=== PATIENT | female | born 1955 | race Caucasian/White ===

== ENCOUNTER 2016-10-22 16:36 | Emergency (ER) | payer BC ==
[2016-10-22 17:03] VITALS: BP 136/86
--- NOTE | 2016-10-22 17:42 | UC ---
Respiratory Complaint HPI - HPI Summary HPI Summary: Pt presents with nasal congestion, cough, wheezing, and generalized malaise X 2 weeks. - History of Current Complaint Chief Complaint: UCRespiratory Stated Complaint: CHEST COLD X2 WKS Time Seen by Provider: 10/22/16 17:35 Hx Obtained From: Patient ?: No Onset/Duration: Gradual Onset, Lasting Weeks - 2 Timing: Constant Severity Initially: Mild Severity Currently: Mild Character: Cough: Nonproductive Aggravating Factors: Recumbent Position Alleviating Factors: Nothing Associated Signs And Symptoms: Positive: Wheezing, Nasal Congestion - Risk Factors Pulmonary Embolism Risk Factors: Negative Cardiac Risk Factors: Negative Pseudomonas Risk Factors: Negative Tuberculosis Risk Factors: Negative - Allergies/Home Medications Allergies/Adverse Reactions: Allergies Allergy/AdvReac Type Severity Reaction Status Date / Time Doxycycline Allergy Vomiting Verified 10/22/16 17:03 Povidone Iodine Allergy Hives Verified 10/22/16 17:03 [From Betadine] Home Medications: Home Medications Cholecalciferol [Vitamin D3] 1,000 unit PO DAILY 10/22/16 [History Confirmed ] PMH/Surg Hx/FS Hx/Imm Hx Previously Healthy: Yes - Surgical History Surgical History: None - Family History Known Family History: Positive: Cardiac Disease - Social History Occupation: Employed Full-time Lives: With Family Alcohol Use: Occasionally Substance Use Type: None Smoking Status (MU): Never Smoked Tobacco Have You Smoked in the Last Year: No Review of Systems Constitutional: Fatigue Skin: Negative Eyes: Negative ENT: Sinus Congestion, Other - nasal congestion Respiratory: Cough Cardiovascular: Negative Gastrointestinal: Negative Genitourinary: Negative Motor: Negative Neurovascular: Negative Musculoskeletal: Myalgia - malaise Neurological: Negative Psychological: Negative All Other Systems Reviewed And Are Negative: Yes Physical Exam Triage Information Reviewed: Yes Appearance: Ill-Appearing Vital Signs: Initial Vital Signs Temp 98.6 F 10/22/16 16:57 Pulse 84 10/22/16 16:57 Resp 18 10/22/16 16:57 BP 136/86 10/22/16 16:57 Pulse Ox 97 10/22/16 16:57 Vital Signs Reviewed: Yes Eye Exam: Normal ENT Exam: Other ENT: Positive: Nasal congestion, TM bulging - bialteral Neck exam: Normal Respiratory Exam: Other Respiratory: Positive: Wheezing - fine wheezes throughout all Cardiovascular Exam: Normal Abdominal Exam: Other Abdomen Description: Positive: Nontender Musculoskeletal Exam: Normal Neurological Exam: Normal Psychological Exam: Normal Skin Exam: Normal UC Diagnostic Evaluation - Laboratory O2 Sat by Pulse Oximetry: 97 Respiratory Course/Dx - Differential Dx/Diagnosis Differential Diagnosis/HQI/PQRI: Bronchitis, Sinusitis Provider Diagnoses: Bronchitis. seasonal allergies Discharge - Discharge Plan Condition: Stable Disposition: HOME Prescriptions: Azithromycin TAB* [Zithromax TAB (Z-ORLY) 250 mg #6 tabs] 2 tab PO .TODAY, THEN 1 DAILY #1 orly Benzonatate CAP* [Tessalon 100 MG CAP*] 100 mg PO TID PRN #30 cap PRN Reason: Cough Loratadine & Pseudoephedrine [Loratadine/Pseudoephedrin 10-240 mg] 1 tab PO DAILY #7 tab predniSONE TAB* [Deltasone TAB*] 20 mg PO DAILY #4 tab Patient Education Materials: Acute Bronchitis (ED), Allergies (ED) Referrals: Gayle Egan MD [Primary Care Provider] - If Needed Additional Instructions: Please follow up with your PCP or return to clinic as needed.
== END 2016-10-22 17:56 | disposition home or self-care (01) ==
LOC: UCCORT 16:36
DX: J40 Bronchitis, not specified as acute or chronic (principal); J30.2 Other seasonal allergic rhinitis
CPT/HCPCS: 99202; G0463

== ENCOUNTER 2016-10-31 17:21 | Emergency (ER) | payer BC ==
[2016-10-31 17:29] VITALS: BP 139/56
--- NOTE | 2016-10-31 18:43 | RAD ---
INDICATION: Posterior LEFT elbow pain following injury 3 days ago. Swelling. COMPARISON: No relevant prior exams available on the [facility] PACS for comparison. TECHNIQUE: AP, lateral, and oblique views LEFT elbow. REPORT: Negative for fat pad displacement to indicate effusion. No cortical disruption or suspicious trabecular irregularity to suggest fracture. Artifactual transverse lucency secondary to skin folds on the AP view. Mild dorsal soft tissue swelling at the proximal forearm. IMPRESSION: Mild dorsal soft tissue swelling. Negative for fracture.
--- NOTE | 2016-10-31 19:27 | UC ---
Elbow Pain - HPI Summary HPI Summary: THREE DAYS AGO FELL ONTO CHAIR. PAIN IN LEFT ELBOW. FULL ROM, PAIN WITH LEANING ON HARD SURFACES. - History of Current Complaint Chief Complaint: UCUpperExtremity Stated Complaint: LEFT ELBOW PAIN / SWELLING Time Seen by Provider: 10/31/16 17:27 Hx Obtained From: Patient Onset/Duration: Days, Traumatic, Still Present Severity Initially: Moderate Severity Currently: Mild Pain Intensity: 0 Pain Scale Used: 0-10 Numeric Location Of Pain: Is Discrete @ - LEFT ELBOW Character: Dull Aggravating Factor(s): Movement Alleviating Factor(s): Rest, Ice Associated Signs And Symptoms: Positive: Negative - Allergies/Home Medications Allergies/Adverse Reactions: Allergies Allergy/AdvReac Type Severity Reaction Status Date / Time Doxycycline Allergy Vomiting Verified 10/31/16 17:29 Povidone Iodine Allergy Hives Verified 10/31/16 17:29 [From Betadine] PMH/Surg Hx/FS Hx/Imm Hx Previously Healthy: Yes - Surgical History Surgical History: Yes Surgery Procedure, Year, and Place: laparoscopy 1988 - Family History Known Family History: Positive: Cardiac Disease - Social History Occupation: Employed Full-time Lives: With Family Alcohol Use: Occasionally Substance Use Type: None Smoking Status (MU): Never Smoked Tobacco Have You Smoked in the Last Year: No Review of Systems Constitutional: Negative Skin: Negative Eyes: Negative ENT: Negative Respiratory: Negative Cardiovascular: Negative Gastrointestinal: Negative Genitourinary: Negative Motor: Negative Neurovascular: Negative Musculoskeletal: Arthralgia - LEFT ELBOW, Myalgia - LEFT ELBOW Neurological: Negative Psychological: Negative All Other Systems Reviewed And Are Negative: Yes Physical Exam Triage Information Reviewed: Yes Appearance: Well-Appearing, No Pain Distress, Well-Nourished Vital Signs: Initial Vital Signs Temp 98.3 F 10/31/16 17:25 Pulse 82 10/31/16 17:25 Resp 18 10/31/16 17:25 BP 139/56 10/31/16 17:25 Pulse Ox 98 10/31/16 17:25 Vital Signs Reviewed: Yes Eye Exam: Normal ENT Exam: Normal Dental Exam: Normal Neck exam: Normal Neck: Positive: Supple, Nontender, No Lymphadenopathy. Negative: Nuchal Rigidity, Tenderness @ Respiratory Exam: Normal Respiratory: Positive: Chest non-tender, Lungs clear, Normal breath sounds, No respiratory distress, No accessory muscle use Cardiovascular Exam: Normal Cardiovascular: Positive: RRR, No Murmur, Pulses Normal, Brisk Capillary Refill Abdominal Exam: Normal Musculoskeletal: Positive: Strength Intact, ROM Intact, No Edema, Other: - TENDERNESS AT PROXIMAL ULNA LEFT ARM Neurological Exam: Normal Psychological Exam: Normal Skin Exam: Normal Elbow Pain Course/Dx - Differential Dx/Diagnosis Differential Diagnosis/HQI/PQRI: Fracture (Closed), Sprain, Strain Provider Diagnoses: CONTUSION LEFT ELBOW Discharge - Discharge Plan Condition: Stable Disposition: HOME Patient Education Materials: Contusion in Adults (ED), Elbow Sprain (ED) Referrals: [facility] [Outside] Gayle Egan MD [Primary Care Provider] - Images Front/Back of Body, Lg ([place]): 1 - PAIN HERE
== END 2016-10-31 19:01 | disposition home or self-care (01) ==
LOC: UCCORT 17:21
DX: S50.02XA Contusion of left elbow, initial encounter (principal); W18.30XA Fall on same level, unspecified, initial encounter; Y92.9 Unspecified place or not applicable; Z88.1 Allergy status to other antibiotic agents; Z88.8 Allergy status to other drugs, medicaments and biological substances
CPT/HCPCS: 99211; G0463

== ENCOUNTER 2017-10-01 12:18 | Emergency (ER) | payer BC ==
--- NOTE | 2017-10-01 12:47 | UC ---
Throat Pain/Nasal Gregor HPI - HPI Summary HPI Summary: 61 yo female presents with sore throat, sinus pain/pressure/congestion, and b/l ear fullness for the last week - getting progressively worse. Has been taking Nyquill and dayquill with no relief. Denies fever, chills, cough, SOB, chest pain. - History of Current Complaint Stated Complaint: SORE THROAT, BILAT EAR/EYE COMPLAINT, COUGH Time Seen by Provider: 10/01/17 12:47 Hx Obtained From: Patient Onset/Duration: Gradual Onset Severity: Moderate Pain Intensity: 6 Pain Scale Used: 0-10 Numeric - Allergies/Home Medications Allergies/Adverse Reactions: Allergies Allergy/AdvReac Type Severity Reaction Status Date / Time doxycycline Allergy Intermediate Rash Verified 10/01/17 12:49 povidone-iodine Allergy Intermediate Hives Verified 10/01/17 12:49 [From Betadine] soap [From Betadine] Allergy Intermediate Hives Verified 10/01/17 12:49 PMH/Surg Hx/FS Hx/Imm Hx - Additional Past Medical History Additional PMH: None - Surgical History Surgical History: Yes Surgery Procedure, Year, and Place: laparoscopy 1988 - Family History Known Family History: Positive: Cardiac Disease - Social History Occupation: Employed Full-time Lives: With Family Alcohol Use: Occasionally Substance Use Type: None Smoking Status (MU): Never Smoked Tobacco Have You Smoked in the Last Year: No Review of Systems Constitutional: Negative Skin: Negative Eyes: Negative ENT: Sore Throat, Ear Ache, Nasal Discharge, Sinus Congestion, Sinus Pain/ Tenderness Respiratory: Negative Cardiovascular: Negative Gastrointestinal: Negative Neurovascular: Negative Neurological: Negative Psychological: Negative All Other Systems Reviewed And Are Negative: Yes Physical Exam - Summary Physical Exam Summary: GENERAL: NAD. WDWN. No pain distress. SKIN: No rashes, sores, lesions, or open wounds. HEENT: Head: AT/NC Eyes: EOM intact. Conjunctiva clear without inflammation or discharge. Ears: Hearing grossly normal. TMs intact, no bulging, erythema, or edema. Nose: Nasal mucosa mildly swollen and erythematous with yellow/ clear discharge. TTP maxillary and frontal sinus. Throat: Posterior oropharynx without exudates, erythema, or tonsillar enlargement. Uvula midline. NECK: Supple. Nontender. No lymphadenopathy. CHEST: CTAB. No r/r/w. No accessory muscle use. Breathing comfortably and in no distress. CV: RRR. Without m/r/g. Pulses intact. Brisk cap refill. NEURO: Alert. CN II-XII grossly intact. PSYCH: Age appropriate behavior. Triage Information Reviewed: Yes Vital Signs: Vital Signs: Temp Pulse Resp BP Pulse Ox 99.5 F 98 18 142/78 96 10/01/17 12:43 10/01/17 12:43 10/01/17 12:43 10/01/17 12:43 10/01/17 12:43 Throat Pain/Nasal Course/Dx - Course Course Of Treatment: Sinusitis - Differential Dx/Diagnosis Provider Diagnoses: Sinusitis Discharge - Sign-Out/Discharge Documenting (check all that apply): Discharge/Admit/Transfer - Discharge Plan Condition: Stable Disposition: HOME Prescriptions: Amoxicillin PO (*) [Amoxicillin 875 MG (*)] 875 mg PO BID #14 tab Patient Education Materials: Sinusitis (ED) Referrals: Gayle Egan MD [Primary Care Provider] - Additional Instructions: If you develop a fever, shortness of breath, chest pain, new or worsening symptoms - please call your PCP or go to the ED. Your blood pressure was mildly elevated at todays visit. Please see your primary provider within 4 weeks for recheck and re-evaluation. - Billing Disposition and Condition Condition: STABLE Disposition: Home
[2017-10-01 12:48] VITALS: BP 142/78
== END 2017-10-01 13:00 | disposition home or self-care (01) ==
LOC: UCCORT 12:18
DX: J32.9 Chronic sinusitis, unspecified (principal); Z88.1 Allergy status to other antibiotic agents
CPT/HCPCS: 99212; G0463

== ENCOUNTER 2018-05-24 17:11 | Emergency (ER) | payer BC ==
[2018-05-24 18:53] VITALS: BP 158/86
--- NOTE | 2018-05-24 19:23 | UC ---
Eye Complaint HPI - HPI Summary HPI Summary: 62-year-old woman comes in with a chief complaint of swelling of the right upper eyelids been going on for days. She has tried warm compresses which helped some but overall the swelling is getting worse. It's also been discolored looking like it's bruise. Denies any eye pain or loss of vision. Does wear contacts takes her eye does not hurt she has had some drainage. No runny nose sore throat or upper respiratory tract infection symptoms. No concern of foreign body. - History of Current Complaint Chief Complaint: UCEye Stated Complaint: RT EYE COMPLAINT Time Seen by Provider: 05/24/18 19:12 Pain Intensity: 0 - Allergies/Home Medications Allergies/Adverse Reactions: Allergies Allergy/AdvReac Type Severity Reaction Status Date / Time doxycycline Allergy Intermediate Rash Verified 05/24/18 18:53 povidone-iodine Allergy Intermediate Hives Verified 05/24/18 18:53 [From Betadine] soap [From Betadine] Allergy Intermediate Hives Verified 05/24/18 18:53 Home Medications: Home Medications Cholecalciferol (Vitamin D3) [Vitamin D3] 3 unit PO DAILY 05/24/18 [History Confirmed 05/24/18] PMH/Surg Hx/FS Hx/Imm Hx Previously Healthy: Yes - Surgical History Surgical History: Yes Surgery Procedure, Year, and Place: laparoscopy for endometriosis - Family History Known Family History: Positive: Cardiac Disease - Social History Alcohol Use: Occasionally Substance Use Type: None Smoking Status (MU): Never Smoked Tobacco Have You Smoked in the Last Year: No Review of Systems All Other Systems Reviewed And Are Negative: Yes Constitutional: Positive: Negative Skin: Positive: Negative Eyes: Positive: Other - SEE HPI ENT: Positive: Negative Respiratory: Positive: Negative Cardiovascular: Positive: Negative Gastrointestinal: Positive: Negative Motor: Positive: Negative Neurovascular: Positive: Negative Musculoskeletal: Positive: Negative Neurological: Positive: Negative Psychological: Positive: Negative Is Patient Immunocompromised?: No Physical Exam Triage Information Reviewed: Yes Appearance: Well-Appearing, No Pain Distress, Well-Nourished Vital Signs: Initial Vital Signs Temp 97.5 F 05/24/18 18:46 Pulse 75 05/24/18 18:46 Resp 16 05/24/18 18:46 BP 158/86 05/24/18 18:46 Pulse Ox 98 05/24/18 18:46 Vital Signs Reviewed: Yes Eye Exam: Normal Eyes: Positive: Conjunctiva Clear, Other: - PERRLA/EOMI SWELLING WITH ERYTHEMA RT UPPER EYELID. NO SCLERAL INJECTION. ENT: Positive: Pharynx normal Neck exam: Normal Neck: Positive: Supple Respiratory: Positive: Lungs clear, Normal breath sounds, No respiratory distress Cardiovascular: Positive: RRR Neurological Exam: Normal Neurological: Positive: Alert, Muscle Tone Normal Psychological Exam: Normal Psychological: Positive: Age Appropriate Behavior Skin: Positive: Other - ERYTHEMA RT UPPER REYELID Eye Complaint Course/Dx - Course Course Of Treatment: We will treat with tobramycin we will treat with an warm compresses. Also do a prescription for Augmentin due to the erythema the upper eyelid and I let the patient know that if the erythema spread that she started the Augmentin and also get reevaluated. If the erythema spreads I would be concerned for possibility of cellulitis. Plan is to have the patient follow up with ophthalmology reevaluation sooner if worse. - Differential Dx/Diagnosis Provider Diagnosis: Stye Discharge - Sign-Out/Discharge Documenting (check all that apply): Patient Departure All imaging exams completed and their final reports reviewed: No Studies - Discharge Plan Condition: Stable Disposition: HOME Prescriptions: Amoxicillin/Clavulanate TAB* [Augmentin TAB 875*] 875 mg PO BID #20 tab Tobramycin 0.3% OPHTH.GISELL* 1 drop RIGHT EYE Q4H #1 btl Patient Education Materials: [place] (ED) Referrals: Gayle Egan MD [Primary Care Provider] - Additional Instructions: FOLLOW UP WITH YOUR TRAVELING FREIGHT AGENT. START THE ORAL ANTIBIOTIC IF THE INFECTION IS SPREADING AND GET REEVALUATED RIGHT AWAY. GET RECHECKED FOR ANY WORSENING OF YOUR CONDITION OR QUESTIONS OR CONCERNS. - Billing Disposition and Condition Condition: STABLE Disposition: Home
== END 2018-05-24 19:29 | disposition home or self-care (01) ==
LOC: UCCORT 17:11
DX: H00.011 Hordeolum externum right upper eyelid (principal); Z91.09 Other allergy status, other than to drugs and biological substances; Z88.8 Allergy status to other drugs, medicaments and biological substances; Z88.1 Allergy status to other antibiotic agents
CPT/HCPCS: 99212; G0463